=== PATIENT | female | born 1995 ===

== ENCOUNTER 2020-08-22 14:25 | Inpatient (IN) | payer OTHER ==
[2020-08-22] MEDS ORDERED: LACTATED RINGERS 1,000 ML IV ONE (15:47)
[2020-08-22] MEDS ORDERED: BICITRA ORAL LIQD 30ML PO ONE (17:07)
[2020-08-22] MEDS ORDERED: METOCLOPRAMIDE 10 MG/2 ML INJ IV ONE (17:07)
[2020-08-22] MEDS ORDERED: FAMOTIDINE 20 MG/2 ML INJ IV ONE (17:07)
[2020-08-22] MEDS ORDERED: BETAMET ACET/BETAMET NA PH 6 MG/ML INJ 5 ML MDV IM ONE (17:11)
--- NOTE | 2020-08-22 17:14 | History and Physical Report ---
History of Present Illness Date of examination: 08/22/20 Date of admission: 08/22/2020 Chief complaint: Contractions and possible leaking of water History of present illness: 25 year old presents to L&D with complaint of contractions and possible leaking of water since earlier this morning (patient is not sure exactly what time). Patient reports she receives care at [facility] (no records are available); she states her EDC is 09/09/2020. Patient denies any complications during this . She states she had a previous section in [place] in September 2018 but no operative note available. labs were drawn upon admission. US was done due to no records available; US shows EGA of 34 weeks, low ORLIN, and BPP 4/8 (off for tone and movement). MD notified of all of the above and patient is being admitted for repeat section. NICU and OR team notified. Past History Past Medical History: no pertinent history Past Surgical History: section [employer] History: denies: chlamydia, gonorrhea, hepatitis B, hepatitis C, herpes, HIV, syphilis, trichomonas Family/Genetic History: none Social history: smoking (socially smoked and drank prior to finding out she was ), other (social use of alcohol early in ) - Obstetrical History Expected Date of Delivery: 09/09/20 Actual Gestation: 37 Week(s) 3 Day(s) : 2 Para: 1 Hx # Term Pregnancies: 1 Number of Pregnancies: 0 Spontaneous Abortions: 0 Induced : 0 Number of Living Children: 1 Medications and Allergies Allergies Allergy/AdvReac Type Severity Reaction Status Date / Time No Known Allergies Allergy Verified 08/22/20 17:15 Active Meds: Active Medications Betamethasone Acet/Betameth SodPhos (Betamet Acet/Betamet Na Ph 6 Mg/Ml Inj 5 Ml Mdv) 12 mg IM ONCE ONE Stop: 08/22/20 17:12 Citric Acid/Sodium Citrate (Bicitra Oral Liqd 30ml) 30 ml PO ONCE ONE Stop: 08/22/20 17:08 Famotidine (Famotidine 20 Mg/2 Ml Inj) 20 mg IV ONCE ONE Stop: 08/22/20 17:08 Lactated Ringer's (Lactated Ringers) 1,000 mls @ 2,250 mls/hr IV PREOP JULIETH Stop: 08/23/20 17:42 Oxytocin/Sodium Chloride (Pitocin/Ns 30 Unit/500ml) 30 units in 500 mls @ 0 mls/hr IV TITR JULIETH; Protocol Cefazolin Sodium (Ancef/Sterile Water 2 Gm/20 Ml) 2 gm in 20 mls @ 80 mls/hr IV PREOP NR; Protocol Metoclopramide HCl (Metoclopramide 10 Mg/2 Ml Inj) 10 mg IV ONCE ONE Stop: 08/22/20 17:08 Review of Systems All systems: negative (contractions and possible leakage of water) - Vital Signs Vital signs: Vital Signs Temp Pulse Resp BP Pulse Ox 98.6 F 75 18 104/62 100 08/22/20 14:44 08/22/20 14:44 08/22/20 14:44 08/22/20 14:44 08/22/20 14:44 Temp Pulse Resp BP Pulse Ox 98.6 F 75 18 104/62 100 08/22/20 14:44 08/22/20 14:44 08/22/20 14:44 08/22/20 14:44 08/22/20 14:44 - Physical Exam Abdomen: Positive: normal appearance, soft. Negative: distention, tenderness, guarding, rigidity Genitourinary (Female): Positive: normal external genitalia, normal perenium Vagina: Positive: discharge (negative nitrazine) Uterus: Positive: enlarged (size less than dates). Negative: tender Anus/Rectum: Positive: normal perianal skin Extremities: Positive: normal. Negative: tenderness, edema - Obstetrical FHR: category 2 Uterine Contraction Monitor Mode: External Cervical Dilatation: 0 Cervical Effacement Percentage: 40 (cephalic by US) station: -2 Uterine Contraction Pattern: Irregular Uterine Contraction Intensity: Mild Results All other labs normal. Assessment and Plan A: at 37 weeks, 3 days gestation. Oligohydramnios. BPP 4/8. Category 2 FHR tracing. Previous section. Size less than dates, possible IUGR. GBS unknown. No records available. P: Admit. Consulted re: patient; MD is en route to perform delivery. Notified NICU and OR team of plan to perform section. Request records. labs were drawn upon admission.
[2020-08-22] MEDS ORDERED: LACTATED RINGERS 1,000 ML IV SCH (17:15)
--- NOTE | 2020-08-22 17:15 | Anesthesia Consultation ---
Anesthesia Consult and Med Hx Date of service: 08/22/20 - Airway Anesthetic Teeth Evaluation: Good ROM Head & Neck: Adequate Mental/Hyoid Distance: Adequate Mallampati Class: Class II Intubation Access Assessment: Probably Good - Pulmonary Exam CTA: Yes - Cardiac Exam Cardiac Exam: RRR - Pre-Operative Health Status ASA Pre-Surgery Classification: ASA2 Proposed Anesthetic Plan: Spinal - Pulmonary Hx Asthma: No - Cardiovascular System Hx Hypertension: No - Central Nervous System Hx Seizures: No Hx Psychiatric Problems: No - Endocrine Hx Renal Disease: No Hx Hypothyroidism: No Hx Hyperthyroidism: No - Hematic Hx Anemia: No Hx Sickle Cell Disease: No - Other Systems Hx Alcohol Use: Yes (social)
--- NOTE | 2020-08-22 17:15 | Anesthesia Day of Surgery ---
Anesthesia Day of Surgery - Day of Surgery Patient Examined: Yes Patient H&P Reviewed: Yes Patient is NPO: Yes
--- NOTE | 2020-08-22 17:21 | Ultrasound Report ---
ULTRASOUND OBSTETRIC LIMITED ULTRASOUND BIOPHYSICAL PROFILE INDICATION / CLINICAL INFORMATION: BPP. Clinical Gestational Age (GA): 37.2 weeks.days COMPARISON: None available. FINDINGS: BREATHING MOVEMENT = 2 GROSS BODY MOVEMENT = 0 TONE = 0 QUALITATIVE AMNIOTIC FLUID VOLUME = 2 TOTAL BIOPHYSICAL SCORE = 4/8 HEART RATE (beats per minute): 137 IMPRESSION: 1. Biophysical Score = 4/8 . No points were reported for gross movement or tone. Signer Name: Fan Evans MD Signed: 08/22/2020 5:17 PM Workstation Name: [id number]
--- NOTE | 2020-08-22 17:24 | Ultrasound Report ---
ULTRASOUND OBSTETRIC INDICATION / CLINICAL INFORMATION: EGA, EDC, location and integrity of placenta, ORLIN. Clinical Gestational Age (GA): 37.2 weeks.days TECHNIQUE: Transabdominal. COMPARISON: None available. FINDINGS: There is a single intrauterine . Biparietal Diameter = 8.4 cm = 34.1 weeks.days Head Circumference = 30.24 cm = 33.4 weeks.days Abdominal Circumference = 29.88 cm = 33.6 weeks.days Femur Length = 6.69 cm = 34.3 weeks.days Average Ultrasound Age (AUA) = 34.0 weeks.days Heart Rate: 137 beats per minute. Estimated Weight in grams (if calculated): 2328 Estimated Weight Growth Percentile (if calculated): Not calculated Position: cephalic. Cervix: closed. Length in cm (if measured): Not measured Placenta: anterior and free of the os. Amniotic Fluid Volume: decreased Amniotic Fluid Index (ORLIN) in cm (if calculated): 4.0. Maternal Adnexa: No significant abnormality. IMPRESSION: 1. Single, living intrauterine with estimated sonographic age of 34.0 weeks.days 2. Decreased ORLIN measuring 4.0 cm. Signer Name: Fan Evans MD Signed: 08/22/2020 5:19 PM Workstation Name: [id number]
[2020-08-22] MEDS ORDERED: BUPIVACAINE/PF (0.5%) 5 MG/1 ML 30 ML VIAL INFILTRATI ONE (17:41)
[2020-08-22] MEDS ORDERED: ONDANSETRON 4 MG/2 ML INJ ONE (17:41)
[2020-08-22 17:42] LABS: Hematocrit 33.2 % (30.3-42.9); Hemoglobin 11.4 gm/dl (10.1-14.3); Mean Corpuscular HGB Conc 34 % (30-34); Mean Corpuscular Volume 85 fl (79-97); Platelet Count 282 K/mm3 (140-440); Red Blood Count 3.89 M/mm3 (3.65-5.03)
[2020-08-22 17:50] LABS: Basophils % (Auto) 0.2 % (0.0-1.8); Eosinophils % (Auto) 0.2 % (0.0-4.3); Lymphocytes % (Auto) 12.1 % (13.4-35.0); Monocytes % (Auto) 6.4 % (0.0-7.3)
[2020-08-22 17:51] LABS: Monocytes # (Auto) 0.5 K/mm3 (0.0-0.8)
[2020-08-22] MEDS ORDERED: KETOROLAC 30 MG/1 ML INJ ONE (17:57)
[2020-08-22] MEDS ORDERED: OXYTOCIN DRIP 30 UNITS/500 ML BAG IV SCH ×2 (18:00→23:45)
[2020-08-22] MEDS ORDERED: ceFAZolin/Water 2 GM/20 ML 2 GM/20 ML SYRINGE IV NR (18:00)
[2020-08-22 18:04] LABS: Hepatitis C Virus Antibody Non-Reactive (NonReactive)
[2020-08-22] MEDS ORDERED: SODIUM CHLORIDE 0.9% IRR 1,500 ML BOTTLE IR ONE (18:57)
[2020-08-22] MEDS ORDERED: WATER FOR IRRIG STERILE 1,500 ML BOTTLE IR ONE (18:57)
[2020-08-22] MEDS ORDERED: LACTATED RINGERS 1,000 ML ONE (19:12)
[2020-08-22 19:33] LABS: Bilirubin,Urine NEG (Negative); Blood,Urine NEG (Negative); Color,Urine Yellow (Yellow); Mucus,Urine FEW /HPF; Protein,Urine <15 mg/dL mg/dL (Negative); Urobilinogen,Urine < 2.0 mg/dL (<2.0)
[2020-08-22 19:43] LABS: Amphetamine Screen,Urine Negative; Benzodiazepines Screen,Urine Negative; Cannabinoid Screen,Urine Negative; Cocaine Screen,Urine Negative; Methadone Screen,Urine Negative; Opiate Screen,Urine Negative
[2020-08-22] MEDS ORDERED: HETASTARCH 6% 500 ML IV ONE (19:44)
--- NOTE | 2020-08-22 21:12 | Progress Note ---
Regional Anesthesia Block - Regional Anesthesia Block Start Time: 20:30 Stop Time: 20:35 Performed By:: GERTRUDE HOYT Procedure: U/S guided bilateral tap block performed for post-operative pain requested by Dr. Monreal. H&P & labs reviewed. Procedure explained, questions answered, consent obtained. Patient in the supine position with ekg, blood pressure cuff and pulse ox on and working in PACU. Timeout performed immediately before start of procedure. Probe placed in the mid-axillary line and the external oblique, internal oblique, and transverse abdominus muscles identified. Skin was cleansed with 0.5% Chlorahexadine and allowed to dry. A 4" 20 G Sofia echogenic needle was advanced in plane until the tip was in the fascial plane between the internal oblique and the transverse abdominus. After negative aspiration 35 ml/side of [30 ml 0.5% Bupivacaine], [50 mcg dexmedetomidine], [10 mg dexamethasone], and [40 ml sterile saline] was injected in 5 ml increments with negative aspiration in between. Patient tolerated procedure well.
--- NOTE | 2020-08-22 21:13 | Procedure Note ---
OB Delivery Note - Delivery Date of Delivery: 08/22/20 Surgeon: CAHTY TO (Asst: Cathy Fonseca) Estimated blood loss: 1000cc - Section Preop diagnosis: repeat , nonreassuring FHR tracing Postop diagnosis: same section procedure: repeat low transverse Disposition: PACU Complications: none Narrative: August 22, 2020 Preop Dx: Term IUP at 37.3wks, non-reassuring FHR and U/S today with gestational age at 34wks, previous section x1 Postop Dx: same and meconium stained fluid Procedure: Repeat Low transverse section Anesthesia: Spinal Intake: 1500cc Output: 700cc clear urine at the end of the procedure EBL: 1000cc per anesthesia Pathology: placenta Procedure: After the risks, benefits and alternatives of procedure discussed, patient signed consents and was taken to the operating room. Pt was given [spinal] anesthesia. After same was adequate, patient was prepped and draped in the usual sterile fashion. Beth catheter in place and draining [clear] urine. Pt was given prophylactic antibiotic per protocol and time out was done Pfannenstiel skin incision was made and taken sharply to the fascia and the incision extended using electrocautery. Superior edge of the fascia was grasped with ramiro clamps and the rectus muscle using blunt dissection and also using electrocautery. Lower portion of the fascia also sharply. Rectus muscle in the midline and Peritoneal cavity entered bluntly and extended with good visualization of the bladder. The bladder flap was created sharply using metzenbaum scissors. Lower uterine segment then entered transversely and amniotic sac entered using allys clamps. Uterine incision extended using bandage scissors. Infant delivered, bulb suctioned, cord clamped and baby handed to waiting pediatricians. Placenta then delivered completely and uterine cavity cleared of all clots and debri. The uterus was not exteriorized and closed in 2 layers using [0-vicryl] suture in a running locked fashion and then an additional layer of imbrication suture. Excellent hemostasis noted. The gutters were cleared of clots and debri and anterior peritoneum closed using [3-0 vicryl] suture nad rectus muscle reapproximated using [o-vicryl] suture. Rectus fascia closed with [0-vicryl] suture and subcutaneous tissue copiously irrigated with normal saline and re-approximated using [3-0 vicryl] suture. Excellent hemostasis remains. The skin was closed with [3-0 monocryl] suture and steristrips placed with pressure dressing. Sponge, lap, instrument and needle counts x2 were normal. Patient tolerated the procedure well and was taken to recovery room stable. Viable female infant, APGARS [8/9] and weight 2498g. Meconium stained fluid: Normal uterus, tubes and ovaries. Dictated by Dr. Cathy To - A at 1 minute: 8 at 5 minutes: 9 Gender: Female
[2020-08-22] MEDS ORDERED: KETOROLAC 30 MG/1 ML INJ IV PRN (23:11)
[2020-08-22] MEDS ORDERED: NALOXONE 0.4 MG/1 ML INJ IV PRN (23:11)
[2020-08-22] MEDS ORDERED: WITCH HAZEL/ GLYCERIN PAD TP PRN (23:11)
[2020-08-22] MEDS ORDERED: ONDANSETRON 4 MG/2 ML INJ IV PRN (23:11)
[2020-08-22] MEDS ORDERED: oxyCODONE /ACETAMINOPHEN 5-325MG TAB PO PRN (23:11)
[2020-08-22] MEDS ORDERED: MAGNESIUM HYDROXIDE (MOM) ORAL LIQD UDC PO PRN (23:11)
[2020-08-22] MEDS ORDERED: LANOLIN/ZINC/DIMETHICONE (LANSINOH) 7 GM TP PRN (23:11)
[2020-08-22] MEDS ORDERED: SIMETHICONE 80 MG CHEW TAB PO PRN (23:11)
--- NOTE | 2020-08-23 09:58 | Progress Note ---
Assessment and Plan A: /postop day 1 S/P repeat low transverse section. P: Hemoglobin and hematocrit already ordered for later this AM. Encouraged patient to ambulate today and to drink warm liquids to assist with passing gas. Advance diet as tolerated. Subjective - Subjective Date of service: 08/23/20 Principal diagnosis: /postop day 1 S/P repeat LTCS Interval history: /postop day 1 S/P repeat low transverse section. Has not passed gas yet. Beth being removed this AM. Patient plans to ambulate in [place] this morning. Tolerating clear liquid diet without nausea or vomiting. Patient denies headache, chest pain, cough, shortness of breath, leg pain, or any other problems. Patient reports: appetite normal, pain well controlled, no flatus, no nauseated : doing well Objective - Vital Signs Latest vital signs: Vital Signs Temp Pulse Resp BP BP Pulse Ox 08/23/20 08:50 97.4 F L 60 20 99/55 08/23/20 06:30 99.2 F 51 L 16 96/58 99 08/22/20 22:45 97.6 F 56 L 20 99/61 98 08/22/20 21:30 98.2 F 92 H 18 104/88 98 08/22/20 21:15 84 18 118/68 100 08/22/20 21:00 78 16 108/88 98 08/22/20 20:45 88 16 104/84 98 08/22/20 20:30 97.8 F 98 H 18 98/74 98 08/22/20 14:44 98.6 F 75 18 104/62 100 Intake and Output 08/22/20 08/23/20 08/23/20 23:59 07:59 15:59 Intake Total 1800 740 240 Output Total 1200 2000 900 Balance 600 -1260 -660 Intake: IV 1800 Oral 240 Intake, Free Water 740 Output: Urine 1200 1999 900 Indwelling Catheter 1999 900 Uretheral (Beth) 400 Other: Total, Intake Amount 240 Total, Output Amount 1200 900 # Voids Void 0 Estimated Blood Loss 1,000 - Exam Cardiovascular: Present: Regular rate Lungs: Present: Clear to auscultation Abdomen: Present: normal appearance, soft, normal bowel sounds. Absent: distention, tenderness, guarding, rigidity Uterus: Present: normal, firm, fundal height below umbilicus. Absent: bogginess, tenderness Extremities: Present: normal. Absent: tenderness, edema Incision: Present: normal, dry, dressed - Labs Labs: Abnormal lab results 08/22/20 Range/Units 17:00 RDW 24.0 H (13.2-15.2) % Lymph % (Auto) 12.1 L (13.4-35.0) % Lymph # (Auto) 1.0 L (1.2-5.4) K/mm3 Seg Neutrophils % 81.1 H (40.0-70.0) %
--- NOTE | 2020-08-23 10:53 | Post Anesthesia Evaluation ---
- Post Anesthesia Evaluation Patient Participated: Yes Airway Patent: Yes Stable Respiratory Function: Yes Nausea/Vomiting: No Temp > 96.8F: Yes Pain Manageable: Yes Adequeate Hydration: Yes Anesthesia Complications: No Block Receding Appropriately: Yes
[2020-08-23] MEDS: oxyCODONE /ACETAMINOPHEN 5-325MG TAB PO PRN ×2 (14:00→22:17)
[2020-08-23] MEDS: IBUPROFEN 800 MG TAB PO PRN (18:23)
[2020-08-23 19:00] LABS: Hematocrit 28.3 % (30.3-42.9); Hemoglobin 9.4 gm/dl (10.1-14.3)
[2020-08-24] MEDS: IBUPROFEN 800 MG TAB PO PRN ×2 (05:25→18:00)
[2020-08-24 09:09] VITALS: BP 96/45
[2020-08-24] MEDS: oxyCODONE /ACETAMINOPHEN 5-325MG TAB PO PRN (09:33)
[2020-08-24] MEDS ORDERED: FERROUS SULFATE 325 MG TAB PO SCH (13:00)
[2020-08-24] MEDS ORDERED: medroxyPROGESTERone ACETATE 150 MG/ML SYRINGE IM NR (13:32)
--- NOTE | 2020-08-24 13:36 | Progress Note ---
Assessment and Plan A: POD #2 Asymptomatic Anemia P: Follow Routine PostOp Orders Continue PO FeSO4 Depo Provera 150mg IM prior to discharge D/C home today per Patient Request RTO in one Week Subjective - Subjective Date of service: 08/24/20 Principal diagnosis: /postop day 1 S/P repeat LTCS Patient reports: appetite normal, voiding normally, pain well controlled, flatus, ambulating normally [employer]: transported (transported to another hospital due to cardiac defect), bottle feeding Objective - Vital Signs Latest vital signs: Vital Signs Temp Pulse Resp BP BP Pulse Ox 08/24/20 08:27 97.4 F L 51 L 20 96/45 94 08/24/20 00:10 97.8 F 59 L 18 90/52 99 08/23/20 16:05 98.2 F 63 18 98/49 Intake and Output 08/23/20 08/24/20 08/24/20 22:59 06:59 14:59 Intake Total 440 240 240 Output Total 600 Balance -160 240 240 Intake: Oral 440 240 240 Output: Urine 600 Void 600 Other: Total, Intake Amount 120 120 240 Total, Output Amount 600 # Voids Void 1 1 1 - Exam Breasts: Present: normal Cardiovascular: Present: Regular rate Lungs: Present: Clear to auscultation, Normal air movement Abdomen: Present: normal appearance, soft, normal bowel sounds Uterus: Present: normal, firm, fundal height below umbilicus Extremities: Present: normal Incision: Present: normal, dry, intact - Labs Labs: Abnormal lab results 08/23/20 Range/Units 18:44 Hgb 9.4 L (10.1-14.3) gm/dl Hct 28.3 L (30.3-42.9) %
--- NOTE | 2020-08-24 13:37 | Discharge Summary ---
Providers - Providers Date of Admission: 08/22/20 17:56 Date of discharge: 08/24/20 Attending physician: DOREEN TO Primary care physician: DOREEN TO Hospitalization Reason for admission: section Delivery: Procedure: primary low transverse Episiotomy: none Laceration: none Incision: normal, dry, intact Other procedures: none complications: none Discharge diagnosis: IUP at term delivered [place] baby: female Condition at discharge: Good Disposition: DC-01 TO HOME OR SELFCARE Plan - Discharge Medications Prescriptions: oxyCODONE /ACETAMINOPHEN [Percocet 5/325 mg] 1 tab PO Q6H PRN 30 Days #30 tablet PRN Reason: Pain, Moderate (4-6) - Provider Discharge Summary Activity: routine, no sex for 6 weeks, no heavy lifting 4 weeks, no strenuous exercise Diet: routine Instructions: routine Additional instructions: [] Smoking cessation referral if applicable(refer to patient education folder for contact #) [] Refer to [facility]'s [facility] Booklet Call your doctor immediately for: * Fever > 100.5 * Heavy vaginal bleeding ( >1 pad per hour) * Severe persistent headache * Shortness of breath * Reddened, hot, painful area to leg or breast * Drainage or odor from incision. * Keep incision clean and dry at all times and follow doctor's instructions rega rding bathing/showering - Follow up plan Follow up: DOREEN TO MD [Primary Care Provider] - 7 Days
== END 2020-08-24 18:10 | disposition home or self-care (01) | DRG 788 ==
LOC: TRG 14:25 → APU 14:27 → TRG 17:55 → APU 17:56 → OB 22:34
PROVIDERS: ADMIT Obstetrics & Gynecology; ATTEND Obstetrics & Gynecology
PROC: 10D00Z1 Extraction of Products of Conception, Low, Open Approach (ICD-10-PCS; principal; 2020-08-22)
PROC: 3E0T3BZ Introduction of Anesthetic Agent into Peripheral Nerves and Plexi, Percutaneous Approach (ICD-10-PCS; 2020-08-22)
DX: O41.03X0 Oligohydramnios, third trimester, not applicable or unspecified (principal); O99.334 Smoking (tobacco) complicating childbirth; O34.211 Maternal care for low transverse scar from previous cesarean delivery; O77.0 Labor and delivery complicated by meconium in amniotic fluid; D64.9 Anemia, unspecified; F17.200 Nicotine dependence, unspecified, uncomplicated; Z20.828 Contact with and (suspected) exposure to other viral communicable diseases; Z3A.37 37 weeks gestation of pregnancy; Z37.0 Single live birth; O99.03 Anemia complicating the puerperium
CPT/HCPCS: 36415; 76815; 76819; 80307; 81001; 83036; 85014; 85018; 85025; 86592; 86706; 86762; 86803; 86850; 86900; 86901; 87806; 88307; G0378; J1050; J1885; J2405; J2590; J7120; U0003